=== PATIENT | female | born 1940 | race Caucasian/White ===

== ENCOUNTER 2017-02-05 13:26 | Observation (INO) | payer OTHER ==
[~2017-02-05] VITALS: Ht 157.5 cm; Wt 85.0 kg
[2017-02-05] VITALS (7 sets, daily range): BP systolic 162–204; BP diastolic 83–92; PULSE 77–96; RESP 18–20; TEMP 97.7–97.9; O2SAT 94–97
[~2017-02-05 13:26] MED LIST: LIPI20TA PO; SERT100 PO
[2017-02-05] MEDS ORDERED: ZOLO100T PO (14:29)
[2017-02-05] MEDS ORDERED: NAPR220T95 PO (14:32)
[2017-02-05] MEDS ORDERED: ASPI81CH7 CHEW (14:32)
[2017-02-05] MEDS ORDERED: SODIUM CHLORIDE 0.9% FLUSH 10 ML FLUSH IVF PRN (14:45)
--- NOTE | 2017-02-05 14:55 | RADRPT ---
EXAM DATE/TIME: 02/05/2017 14:46 [facility] COMPARISON: No previous studies available for comparison. INDICATIONS : Abnormal EKG with shortness of breath for 2 weeks. MEDICAL HISTORY : Chronic obstructive pulmonary disease. SURGICAL HISTORY : None. ENCOUNTER: Initial ACUITY: 2 weeks PAIN SCORE: 0/10 LOCATION: chest FINDINGS: A single view of the chest demonstrates the lungs to be symmetrically aerated without evidence of mas s, infiltrate or effusion. The cardiomediastinal contours are unremarkable. Osseous structures are intact. CONCLUSION: No acute disease. Sree Dockery MD FACR on February 05, 2017 at 14:54 Board Certified Radiologist. This report was verified electronically.
[2017-02-05 15:01] LABS: AUTOMATED NEUTROPHIL # 6.7 TH/MM3 (1.8-7.7); BASOPHIL # 0.1 TH/MM3 (0-0.2); BASOPHIL % 0.6 % (0.0-2.0); EOSINOPHIL # 0.2 TH/MM3 (0-0.4); EOSINOPHIL % 1.7 % (0.0-4.0); HEMATOCRIT 39.3 % (35.0-46.0); HEMO FLAGS DIFF FINAL; LYMPH % 22.9 % (9.0-44.0); LYMPHOCYTE # 2.2 TH/MM3 (1.0-4.8); MEAN CELL VOLUME 80.4 FL (80.0-100.0); MEAN CORPUSCULAR HGB CONC 34.8 % (32.0-36.0); MONO % 3.8 % (0.0-8.0); PLATELET COUNT 216 TH/MM3 (150-450); RED BLOOD COUNT 4.88 MIL/MM3 (4.00-5.30); RED CELL DISTRIBUTION WIDTH 14.1 % (11.6-17.2); WHITE BLOOD COUNT 9.4 TH/MM3 (4.0-11.0)
[2017-02-05 15:18] LABS: BLOOD UREA NITROGEN 14 MG/DL (7-18); CHLORIDE 107 MEQ/L (98-107); GLOMERULAR FILTRATION RATE 97 ML/MIN (>89); MAGNESIUM 2.2 MG/DL (1.5-2.5); SODIUM (NA) 140 MEQ/L (136-145)
[2017-02-05 15:19] LABS: ANION GAP 4 MEQ/L (5-15); BICARBONATE 28.7 MEQ/L (21.0-32.0); CREATINE KINASE 83 U/L (26-192); POTASSIUM 4.5 MEQ/L (3.5-5.1)
[2017-02-05 15:27] LABS: APTT (PATIENT) 25.1 SEC (24.3-30.1); INTERNATIONAL NORMALIZED RATIO 0.9 RATIO
--- NOTE | 2017-02-05 16:18 | PD ---
HPI Chief Complaint: Cardiac Complaint Time Seen by Provider: 14:03 Travel History International Travel<30 days: No Contact w/Intl Traveler<30days: No Traveled to known affect area: No History of Present Illness HPI 76-year-old female came to the emergency room sent from her doctor's office with history of shortness of breath upon exertion for past 2-3 weeks. She had gone to see her doctor is a regular visit and happened to mention about this complain. Upon asking she also said that she has occasional chest pain that is from the midsternal area radiating to her left breast. There is no relationship of the chest pain to the shortness of breath. She usually notices the chest pain at night. Her last episode of chest pain was this morning when she woke up. Currently she was chest pain-free. There was a 12-lead EKG done at the primary care's office that showed a left bundle branch block. This was identified as a new onset left bundle branch block she was sent to the emergency room. Vital signs are stable and she does not appear to be in any significant discomfort. Patient has a third mate and he sees the third mate almost every year she said. Her last stress test was last year she things. No history of syncopal episodes. She does get little diaphoretic along with the shortness of breath. PFSH Past Medical History Narrative Medical List of her past medical, surgical, social and family history was reviewed from the nursing note. Hx Anticoagulant Therapy: Yes (ASPRIN ) Depression: Yes High Cholesterol: Yes Menopausal: Yes Past Surgical History Cholecystectomy: Yes Social History Alcohol Use: Yes (occas. wine) Tobacco Use: No (quit 1980 smoked cigs 1 ppd for 20 yrs) Substance Use: No Allergies-Medications (Allergen,Severity, Reaction): Coded Allergies: No Known Allergies (Unverified , 02/05/17) Comments No known drug allergies. Reported Meds & Prescriptions Reported Meds & Active Scripts Active Reported Aleve (Naproxen Sodium) 220 Mg Tab 440 Mg PO BID PRN Aspirin Children's (Aspirin) 81 Mg Chew 81 Mg CHEW DAILY@1600 Zoloft (Sertraline HCl) 100 Mg Tab 150 Mg PO DAILY@1600 Narrative Medication List of her home medications reviewed from the nursing note. Review of Systems Except as stated in HPI: all other systems reviewed are Neg Physical Exam Narrative GENERAL: Awake, alert, no obvious distress, obese SKIN: Warm and dry. HEAD: Atraumatic. Normocephalic. EYES: Pupils equal and round. No scleral icterus. No injection or drainage. ENT: No nasal bleeding or discharge. Mucous membranes pink and moist. NECK: Trachea midline. No JVD. CARDIOVASCULAR: Regular rate and rhythm. No murmur appreciated. RESPIRATORY: No accessory muscle use. Clear to auscultation. Breath sounds equal bilaterally. GASTROINTESTINAL: Abdomen soft, non-tender, nondistended. Hepatic and splenic margins not palpable. MUSCULOSKELETAL: No obvious deformities. No clubbing. No cyanosis. No edema. NEUROLOGICAL: Awake and alert. No obvious cranial nerve deficits. Motor grossly within normal limits. Normal speech. PSYCHIATRIC: Appropriate mood and affect; insight and judgment normal. Data Data Last Documented VS Vital Signs Date Time Temp Pulse Resp B/P Pulse Ox O2 Delivery O2 Flow Rate FiO2 02/05/17 13:45 96 Room Air 02/05/17 13:28 97.9 96 18 204/92 Orders Electrocardiogram (02/05/17 14:31) Basic Metabolic Panel (Bmp) (02/05/17 14:31) Ckmb (Isoenzyme) Profile (02/05/17 14:31) Complete Blood Count With Diff (02/05/17 14:31) Magnesium (Mg) (02/05/17 14:31) Prothrombin Time / Inr (Pt) (02/05/17 14:31) Act Partial Throm Time (Ptt) (02/05/17 14:31) Troponin I (02/05/17 14:31) Chest, Single Ap (02/05/17 14:31) Ecg Monitoring (02/05/17 14:31) Bilateral Bp Monitoring (02/05/17 14:31) Iv Access Insert/Monitor (02/05/17 14:31) Oximetry (02/05/17 14:31) Oxygen Administration (02/05/17 14:31) Sodium Chloride 0.9% Flush (Ns Flush) (02/05/17 14:45) Admit Order (Ed Use Only) (02/05/17 16:13) Labs Laboratory Tests Test 02/05/17 14:45 White Blood Count 9.4 TH/MM3 Red Blood Count 4.88 MIL/MM3 Hemoglobin 13.7 GM/DL Hematocrit 39.3 % Mean Corpuscular Volume 80.4 FL Mean Corpuscular Hemoglobin 28.0 PG Mean Corpuscular Hemoglobin 34.8 % Concent Red Cell Distribution Width 14.1 % Platelet Count 216 TH/MM3 Mean Platelet Volume 7.8 FL Neutrophils (%) (Auto) 71.0 % Lymphocytes (%) (Auto) 22.9 % Monocytes (%) (Auto) 3.8 % Eosinophils (%) (Auto) 1.7 % Basophils (%) (Auto) 0.6 % Neutrophils # (Auto) 6.7 TH/MM3 Lymphocytes # (Auto) 2.2 TH/MM3 Monocytes # (Auto) 0.4 TH/MM3 Eosinophils # (Auto) 0.2 TH/MM3 Basophils # (Auto) 0.1 TH/MM3 CBC Comment DIFF FINAL Differential Comment Prothrombin Time 10.0 SEC Prothromb Time International 0.9 RATIO Ratio Activated Partial 25.1 SEC Thromboplast Time Sodium Level 140 MEQ/L Potassium Level 4.5 MEQ/L Chloride Level 107 MEQ/L Carbon Dioxide Level 28.7 MEQ/L Anion Gap 4 MEQ/L Blood Urea Nitrogen 14 MG/DL Creatinine 0.60 MG/DL Estimat Glomerular Filtration 97 ML/MIN Rate Random Glucose 93 MG/DL Calcium Level 9.2 MG/DL Magnesium Level 2.2 MG/DL Total Creatine Kinase 83 U/L Troponin I LESS THAN 0.02 NG/ML MDM Medical Decision Making Medical Screen Exam Complete: Yes Emergency Medical Condition: Yes Medical Record Reviewed: Yes Interpretation(s) Twelve-lead EKG was reviewed by me. Normal sinus rhythm, normal axis, left bundle branch block. Heart rate of 81 bpm. Differential Diagnosis ACS, congestive heart failure Narrative Course 4 PM I discussed the case with patient's third mate Dr. Mitchell. As per him the left bundle branch block is not new. He has EKGs of her which has left bundle branch block as well. However, given her symptoms he recommended the patient should be stressed at the chest pain center. I've gone ahead and admitted her to the chest pain center. All her blood test results were back and they were within normal limit. Chest x-ray was within acceptable limits. Procedures EKG Prior to Arrival: Yes Diagnosis Primary Impression: Chest pain Qualified Code: R07.9 - Chest pain, unspecified type Admitting Information Admitting Physician Requests: Bubba Brown MD Feb 05, 2017 16:18
[2017-02-05] MEDS ORDERED: SODIUM CHLORIDE 0.9% FLUSH 5 ML FLUSH IVF PRN (17:15)
--- NOTE | 2017-02-05 17:29 | HHI.HP ---
[facility] Primary Care Physician David Molina MD Chief Complaint Chest pain History of Present Illness This is a 76-year-old female that presents to the ED via private vehicle with family after presenting to her primary care office for a physical. An EKG was obtained which showed a left bundle branch block. This concerned her primary care physician who asked the patient about other symptoms. The patient stated that she had been having for the last week a left-sided chest discomfort that she describes as a tightness that for the most part always occurred at nighttime she lying down in bed. Is very mild in nature. She would not even thought about it if her primary care physician when out of and asking for symptoms after getting EKG. She also has chronic shortness of breath with COPD but states that it seems occur shortness of breath has been a little worse over the last 3-4 weeks. She states when she she occasionally gets a little sweaty when she has this discomfort at nighttime. No nausea. Denies recent illnesses. Denies fevers. She has followed Dr. Mitchell in the past. She states she was referred to him to evaluate shortness of breath a couple years ago. She had a chemical stress test and was told that it was okay he really has not had to follow him since. Dr. De Jesus spoke with Dr. Mitchell, left bundle branch block is not new. He requested that she admit the patient to the chest pain center for stress testing. Review of Systems General: Patient denies fevers, chills recent, and recent travel HEENT: Patient denies headache, sore throat, difficulty swallowing. Cardiovascular: Has the chest discomfort as mentioned above. Denies sensation of heart beating rapidly or irregularly. No syncope. Has had some diaphoresis. Respiratory: Patient has chronic shortness of breath. She believes it has worsened over the last 3-4 weeks. Denies inspirational chest discomfort. Denies coughing wheezing or hemoptysis. GI: Patient denies nausea, vomiting, diarrhea, abdominal pain, bloody stools. Musculoskeletal: Patient denies joint pain or edema. Denies calf pain or edema. Neurovascular: Patient denies numbness, tingling, weakness in extremities. Denies headache. Endocrine: Denies polyuria and polydipsia. Hematologic: Denies easy bruising. Skin: Denies rash or itching. Past Family Social History Allergies: Coded Allergies: No Known Allergies (Unverified , 02/05/17) Past Medical History Left bundle branch block, COPD, hyperlipidemia however she has not tolerated statins in his medication at this time. Denies history of hypertension although she was quite hypertensive upon arrival to the ED with a blood pressure of 204/92. Denies diabetes and known CAD. Past Surgical History Noncontributory. Reported Medications Reported Meds & Active Scripts Active Reported Aleve (Naproxen Sodium) 220 Mg Tab 440 Mg PO BID PRN Aspirin Children's (Aspirin) 81 Mg Chew 81 Mg CHEW DAILY@1600 Zoloft (Sertraline HCl) 100 Mg Tab 150 Mg PO DAILY@1600 Active Ordered Medications Current Medications Medications (Trade) Dose Ordered Sig/Viktor Route Start Time Stop Time Status Last Admin (NS Flush) 2 ml UNSCH PRN IVF 02/05/17 14:45 (NS Flush) 2 ml UNSCH PRN IVF 02/05/17 17:15 UNV (NS Flush) 2 ml BID IVF 02/05/17 21:00 UNV (Tylenol) 500 mg Q4H PRN PO 02/05/17 17:15 UNV ([place] 7.5-325 Mg) 1 tab Q4H PRN PO 02/05/17 18:00 (Zofran Inj) 4 mg Q6H PRN IV 02/05/17 17:15 UNV (Protonix) 40 mg DAILY PO 02/05/17 18:00 (Aspirin) 325 mg DAILY PO 02/06/17 09:00 UNV (Xanax) 0.25 mg Q8HR PRN PO 02/05/17 18:00 (Catapres) 0.1 mg Q4H PRN PO 02/05/17 18:00 (Prinivil) 10 mg DAILY PO 02/05/17 17:15 UNV Family History Not aware family history of CAD. Her father of "black lung disease. " But she also states that she had heard family talking about him having congestive heart failure as well. Social History Patient quit smoking cigarettes 30 years ago prior that she smoked one pack of cigarettes daily for 20 years. She lives alone. Physical Exam Vital Signs Vital Signs Date Time Temp Pulse Resp B/P Pulse Ox O2 Delivery O2 Flow Rate FiO2 02/05/17 13:28 97.9 96 18 204/92 97 Room Air Physical Exam GENERAL: This is a well-nourished, well-developed patient, in no apparent distress. Patient speaks in clear complete sentences. Patient is pleasant. Patient has multiple family and friends at the bedside. HEENT: Head is atraumatic and normocephalic. Neck is supple without lymphadenopathy and trachea is midline. No JVD or carotid bruits. CARDIOVASCULAR: Regular rate and rhythm without murmurs, gallops, or rubs. RESPIRATORY: Clear to auscultation. Breath sounds equal bilaterally. No wheezes , rales, or rhonchi. Chest wall is nontender. No use of accessory muscles. GASTROINTESTINAL: Abdomen is nontender, nondistended. Abdomen soft. No obvious pulsatile mass or bruit. No CVA tenderness. Strong femoral pulses bilaterally. Normal bowel sounds in all quadrants. MUSCULOSKELETAL: Patient is moving upper and lower extremities freely. No calf tenderness or edema, no Homans sign. Strong pulses in upper and lower extremities. NEUROLOGICAL: Patient is alert and oriented. Cranial nerves 2-12 are grossly intact. No focal deficits and speech is clear. SKIN: No rash and turgor is normal. Laboratory Laboratory Tests Test 02/05/17 14:45 White Blood Count 9.4 Red Blood Count 4.88 Hemoglobin 13.7 Hematocrit 39.3 Mean Corpuscular Volume 80.4 Mean Corpuscular Hemoglobin 28.0 Mean Corpuscular Hemoglobin 34.8 Concent Red Cell Distribution Width 14.1 Platelet Count 216 Mean Platelet Volume 7.8 Neutrophils (%) (Auto) 71.0 Lymphocytes (%) (Auto) 22.9 Monocytes (%) (Auto) 3.8 Eosinophils (%) (Auto) 1.7 Basophils (%) (Auto) 0.6 Neutrophils # (Auto) 6.7 Lymphocytes # (Auto) 2.2 Monocytes # (Auto) 0.4 Eosinophils # (Auto) 0.2 Basophils # (Auto) 0.1 CBC Comment DIFF FINAL Differential Comment Prothrombin Time 10.0 Prothromb Time International 0.9 Ratio Activated Partial 25.1 Thromboplast Time Sodium Level 140 Potassium Level 4.5 Chloride Level 107 Carbon Dioxide Level 28.7 Anion Gap 4 Blood Urea Nitrogen 14 Creatinine 0.60 Estimat Glomerular Filtration 97 Rate Random Glucose 93 Calcium Level 9.2 Magnesium Level 2.2 Total Creatine Kinase 83 Troponin I LESS THAN 0.02 Result Diagram: 02/05/17 1445 02/05/17 1445 Imaging Last 24 hours Impressions Chest X-Ray 02/05/17 1431 Signed Impressions: Service Date/Time: Sunday, February 05, 2017 14:46 - CONCLUSION: No acute disease. Sree Dockery MD FACR Course Initial EKG has a left bundle branch block. Assessment and Plan Assessment and Plan * Chest pain: Patient will continue to have serial cardiac enzymes and EKGs for ruling out purposes. She will also be seen by Dr. Godinez of cardiology in the chest pain center in the morning. The ER physician spoke with Dr. Mitchell who requested admission to the chest pain center and to proceed with stress testing. If she rules out she will likely have a Lexiscan a morning. She'll likely be discharged home if the stress test were to be nonischemic. If stress test is abnormal it certainly notify Dr. Mitchell as well. * Elevated blood pressure: Patient denies history of hypertension. I rechecked her blood pressure in the room and was 168/89. We'll start lisinopril and recheck in the morning. Possibly may need Rx. * COPD: Abdomen is when necessary. * Left bundle branch block: ED physician spoke with her room inspector and this is not new. * Hyperlipidemia: Patient states she does not tolerate statins and should discuss further treatment with her physician. Patient is stable at this time. She is agreeable to this plan. Josiah Palacios Feb 05, 2017 17:29
[2017-02-05] MEDS ORDERED: cloNIDine HCL 0.1 MG TAB PO PRN (18:00)
[2017-02-05] MEDS ORDERED: ONDANSETRON HCL 4 MG/2 ML VIAL IV PRN (18:00)
[2017-02-05] MEDS ORDERED: ACETAMINOPHEN/HYDROcodone 325 MG/7.5 MG TAB PO PRN (18:00)
[2017-02-05] MEDS ORDERED: ALPRAZolam 0.25 MG TAB PO PRN (18:00)
[2017-02-05] MEDS ORDERED: ACETAMINOPHEN 500 MG CPLT PO PRN (18:00)
[2017-02-05] MEDS ORDERED: LISINOPRIL 10 MG TAB PO SCH (18:00)
[2017-02-05] MEDS: PANTOPRAZOLE SOD 40 MG DELAYED RELEASE TAB PO SCH (18:39)
[2017-02-05] MEDS ORDERED: RESP: ALBUTEROL 2.5 MG/IPRATROPIUM 0.5 MG NEB (PRN) INH (20:00)
[2017-02-05 20:17] LABS: CREATINE KINASE 43 U/L (26-192)
[2017-02-05] MEDS: SODIUM CHLORIDE 0.9% FLUSH 5 ML FLUSH IVF SCH (21:00)
[2017-02-05 23:04] LABS: CREATINE KINASE 49 U/L (26-192)
[2017-02-06 04:20] VITALS: BP 165/67; PULSE 68; RESP 18; TEMP 97.8; O2SAT 95
[2017-02-06 08:40] VITALS: BP 138/83; PULSE 68; RESP 17; TEMP 97.6; O2SAT 93
[2017-02-06] MEDS ORDERED: PILL SPLITTER OTHER PRN (08:45)
[2017-02-06] MEDS ORDERED: ASPIRIN 325 MG TAB PO SCH (09:00)
[2017-02-06] MEDS ORDERED: LISINOPRIL 10 MG TAB PO SCH (09:00)
[2017-02-06] MEDS: SODIUM CHLORIDE 0.9% FLUSH 5 ML FLUSH IVF SCH (09:00)
[2017-02-06] MEDS: PANTOPRAZOLE SOD 40 MG DELAYED RELEASE TAB PO SCH (09:09)
[2017-02-06] MEDS ORDERED: REGADENOSON INJ 0.4 MG/5 ML SYR ONE (11:17)
--- NOTE | 2017-02-06 13:17 | RADRPT ---
EXAM DATE/TIME: 02/06/2017 10:24 [facility] COMPARISON: No previous studies available for comparison. INDICATIONS : Chronic dyspnea upon exertion. Chest pain radiating to the left breast for 2 months. Abnormal EKG. DOSE: 34.8 mCi Tc99m Myoview at stress. 11.0 mCi Tc99m Myoview at rest. 0.4 mg Lexiscan STRESS SYMPTOMS: Dyspnea, dizziness and nausea. EJECTION FRACTION: 43% MEDICAL HISTORY : Hypercholesterolemia. Ex-smoker. SURGICAL HISTORY : Cholecystectomy. ENCOUNTER: Initial ACUITY: 2 months PAIN SCALE: 4/10 LOCATION: Midsternal chest TECHNIQUE: The patient underwent pharmacologic stress with infusion of prescribed dose. Continuous ECG tracing was monitored during stress. Gated SPECT imaging was performed after stress and conventional SPECT i maging was performed at rest. The examination was performed on a SPECT/CT scanner, both attenuation and non-corrected datasets were reviewed. FINDINGS: DISTRIBUTION: The maximum perfused segment at stress is in the anterolateral. PERFUSION STUDY: The pattern of perfusion at stress shows fixed perfusion defect in the low anterior and inferior wall s extending into the apex. A there are small areas of 20-30% redistribution in the inferior wall poss ibly representing some elie-infarct ischemia. GATED STUDY: Diffuse hypokinesis with a diminished ejection fraction of 43%. CONCLUSION: 1. 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 2. Possible punctate area of elie-infarct ischemia in the inferior wall. 3. Diffuse hypokinesis with a reduced ejection fraction of 43% . RISK CATEGORY: Intermediate (1-3% Annual Mortality Rate) Erasmo Mancuso MD on February 06, 2017 at 13:01 Board Certified Radiologist. This report was verified electronically.
--- NOTE | 2017-02-06 14:37 | HHI.DCPOC ---
Discharge Care Plan Diagnosis: (1) Atypical chest pain (2) Decreased cardiac ejection fraction (3) COPD (chronic obstructive pulmonary disease) Goals to Promote Your Health * To prevent worsening of your condition and complications * To maintain your health at the optimal level Directions to Meet Your Goals Take your medications as prescribed Follow your dietary instruction Follow activity as directed Keep your appointments as scheduled Take your immunizations and boosters as scheduled If your symptoms worsen call your PCP, if no PCP go to Urgent Care Center or Emergency Room Smoking is Dangerous to Your Health. Avoid second hand smoke Call the 24-hour hour crisis hotline for domestic abuse at [place] Feb 06, 2017 14:37
[2017-02-06] MEDS ORDERED: SERTRALINE HCL 100 MG TAB PO SCH (16:00)
[2017-02-06 16:09] VITALS: BP 135/64; PULSE 79; RESP 19; TEMP 98.4; O2SAT 95
--- NOTE | 2017-02-06 17:33 | TR ---
Date Performed: 02/06/2017 Time Performed: 11:05:18 DOCTOR: Aishwarya Godinez DRUG LIST: CLINICAL HISTORY: REASON FOR TEST: Angina REASON FOR ENDING: OBSERVATION: CONCLUSION: Lexiscan stress test was performed under standard four minute protocol. Radionucl[place] e was injected one minute prior to ending the test. No electrocardiographic abormalities were present to suggest ischemia. Nuclear imaging and interpretation are pending. COMMENTS:
--- NOTE | 2017-02-06 21:37 | EKG ---
Date Performed: 02/05/2017 Time Performed: 22:44:17 PTAGE: 76 years EKG: Sinus rhythm LEFT BUNDLE BRANCH BLOCK ABNORMAL ECG Since PREVIOUS TRACING , no significant change noted PREVIOUS TRACIN02/05/2017 19.04 DOCTOR: Aishwarya Godinez Interpretating Date/Time 02/06/2017 21:36:56
--- NOTE | 2017-02-06 21:38 | EKG ---
Date Performed: 02/05/2017 Time Performed: 19:04:41 PTAGE: 76 years EKG: Sinus rhythm WITH OCCASIONAL VENTRICULAR PREMATURE COMPLEXES LEFT BUNDLE BRANCH BLOCK ABNORMAL ECG Since PREVIOUS TRACING , no significant change noted PREVIOUS TRACIN02/05/2017 14.08 DOCTOR: Aishwarya Godinez Interpretating Date/Time 02/06/2017 21:37:55
--- NOTE | 2017-02-07 14:34 | EKG ---
Date Performed: 02/05/2017 Time Performed: 14:08:11 PTAGE: 76 years EKG: Sinus rhythm LEFT BUNDLE BRANCH BLOCK ABNORMAL ECG NO PREVIOUS TRACING DOCTOR: Aishwarya Godinez Interpretating Date/Time 02/07/2017 14:32:07
== END 2017-02-06 16:51 | disposition home or self-care (01) ==
LOC: NEPC 13:26 → NEDA 16:15 → NEPGCP 19:13
PROVIDERS: ADMIT Internal Medicine Cardiovascular Disease; ATTEND Internal Medicine Cardiovascular Disease
DX: R07.9 Chest pain, unspecified (principal); R06.02 Shortness of breath; I44.7 Left bundle-branch block, unspecified; R61 Generalized hyperhidrosis; Z79.82 Long term (current) use of aspirin; E78.00 Pure hypercholesterolemia, unspecified; Z87.891 Personal history of nicotine dependence; Z79.899 Other long term (current) drug therapy; J44.9 Chronic obstructive pulmonary disease, unspecified; R03.0 Elevated blood-pressure reading, without diagnosis of hypertension; E78.5 Hyperlipidemia, unspecified; R94.31 Abnormal electrocardiogram [ECG] [EKG]
CPT/HCPCS: 71010; 78452; 80048; 82550; 83735; 84484; 85025; 85610; 85730; 93005; 93017; 99285; A9502; G0378; J2785

== ENCOUNTER → 2017-07-03 | Outpatient (CLI) | payer OTHER ==
[~2017-07-03] MED LIST changes: +ALEV220T14 PO; +ASPI81CH37 CHEW; +ASPI81CH7 CHEW; +COMMODE 3-IN-11 MIS; +ENOX40P SQ; +HYDR-3288 PO; -LIPI20TA PO; +NAPR220T95 PO; -SERT100 PO; +WALKER WHEELS/F1 MIS; +ZOLO100T PO
--- NOTE | 2017-07-15 09:52 | RSPPFT ---
DATE OF PROCEDURE: 07/03/17 COMMENTS: VOLUMES DYNAMIC: FVC and FEV1 mildly reduced. STATIC: RV, FRC and TLC mildly reduced. FLOWS: FEV1% mildly reduced; FEF 25-75 severely reduced. DIFFUSION; Moderately reduced. FLOW VOLUME LOOP: Combined obstructive and restrictive pattern. IMPRESSION: Combined mild obstructive and mild restrictive ventilator defect with a moderate reduction in diffusion and no significant improvement post-bronchodilator.
== END ==
LOC: PHRSP 08:21
PROVIDERS: ATTEND Internal Medicine
DX: J44.9 Chronic obstructive pulmonary disease, unspecified (principal)
CPT/HCPCS: 94060; 94620; 94726; 94729

== ENCOUNTER 2017-07-21 10:00 | Inpatient (IN) | payer OTHER, MEDICARE ==
[~2017-07-21] VITALS: Ht 157.5 cm; Wt 83.7 kg
[~2017-07-21 10:00] MED LIST changes: -ALEV220T14 PO; -ASPI81CH37 CHEW; -COMMODE 3-IN-11 MIS; -ENOX40P SQ; -HYDR-3288 PO; -NAPR220T95 PO; -WALKER WHEELS/F1 MIS
[2017-07-31] MEDS ORDERED: ALEV220T14 PO (14:10)
[2017-08-01] MEDS ORDERED: SODIUM CHLOR 0.9% 250 ML INJ 250 ML ONE (06:11)
[2017-08-01] MEDS ORDERED: VANCOMYCIN HCL 1000 MG VIAL ONE (06:11)
[2017-08-01] MEDS ORDERED: GENTAMICIN SULFATE 80 MG/2 ML VIAL ONE (06:11)
[2017-08-01] MEDS ORDERED: ceFAZolin 2 GM PREMIX 50 ML ONE (06:12)
[2017-08-01] MEDS ORDERED: DEXAMETHASONE SOD PHOS 20 MG/5 ML VIAL ONE (06:12)
[2017-08-01] MEDS ORDERED: VANCOMYCIN 1000 MG/NS 250 ML (for <70 kg) IV SCH ×2 (06:15)
[2017-08-01] MEDS ORDERED: ceFAZolin 2 GM PREMIX 50 ML IV SCH (06:15)
[2017-08-01] MEDS ORDERED: POVIDONE IODINE 7.5% SCRUB 118 ML BOTTLE TOPICAL SCH (06:15)
[2017-08-01] MEDS ORDERED: CHLORHEXIDINE GLUCONATE 4% SOLN 120 ML BTL TOPICAL SCH (06:15)
[2017-08-01] MEDS ORDERED: DEXAMETHASONE SOD PHOS 20 MG/5 ML VIAL IV SCH (06:15)
[2017-08-01] MEDS ORDERED: ACETAMINOPHEN 1000 MG/100 ML 100 ML IV ONE (06:17)
[2017-08-01] MEDS ORDERED: CHLORHEXIDINE GLUCONATE 2 % 1 PACK (2 CLOTHS) TOPICAL PRN (06:30)
[2017-08-01] MEDS ORDERED: POVIDONE IODINE 5% (ANTISEPSIS KIT) 4 APPLICATIONS EACH NARE PRN (06:30)
[2017-08-01] MEDS ORDERED: LACTATED RINGER'S 1000 ML IV PRN (06:30)
[2017-08-01] MEDS ORDERED: SODIUM CHLORID 0.9% 500 ML IV PRN (06:30)
[2017-08-01] MEDS ORDERED: INSULIN HUMAN REGULAR 1,000 UNITS/10 ML VIAL SQ PRN (06:30)
[2017-08-01] MEDS ORDERED: METOPROLOL TARTRATE 25 MG TAB PO PRN (06:30)
[2017-08-01] MEDS ORDERED: TRANEXAMIC PERI-ARTICULAR 3,000 MG/NS 100 ML P-ARTICULR SCH ×2 (07:00)
[2017-08-01] MEDS ORDERED: TRANEXAMIC ACID IV SCH (07:00)
[2017-08-01] MEDS ORDERED: EXPAREL PERI-ARTICULAR INJECTION (TOTAL VOL. 60 ML) P-ARTICULR SCH ×2 (07:00)
[2017-08-01] MEDS ORDERED: SODIUM CHLORIDE 0.9% IV SCH (07:00)
[2017-08-01] MEDS ORDERED: HYDR-3288 PO (07:10)
[2017-08-01] MEDS ORDERED: ENOX40P SQ (07:11)
[2017-08-01] MEDS ORDERED: ASPI81CH37 CHEW (07:11)
--- NOTE | 2017-08-01 07:13 | HHI.DCPOC ---
Discharge Care Plan Diagnosis: (1) Primary localized osteoarthrosis, pelvic region and thigh Your Health Problems Are: Difficulty with ADL Goals to Promote Your Health * To prevent worsening of your condition and complications * To maintain your health at the optimal level Directions to Meet Your Goals Take your medications as prescribed Follow your dietary instruction Follow activity as directed Keep your appointments as scheduled Take your immunizations and boosters as scheduled If your symptoms worsen call your PCP, if no PCP go to Urgent Care Center or Emergency Room Smoking is Dangerous to Your Health. Avoid second hand smoke Call the 24-hour hour crisis hotline for domestic abuse at Chetan Verduzco Aug 01, 2017 07:13
--- NOTE | 2017-08-01 07:14 | HHI.FF ---
Face to Face Verification Diagnosis: (1) Primary localized osteoarthrosis, pelvic region and thigh Physical Therapy Gait training, Safety evaluation, Transfer training, bed to chair Hip: Total hip, Protocol: Left, Progress to weight bearing Left LE Weight Bearing: WB as tolerated Nursing RN: 3 days/week x 2 weeks Nursing: Josee teaching, Dressing changes Dressing Changes: Daily dressing change I have seen patient Crista Ferguson on 08/01/17. My clinical findings support the need for the requested home health care services because: Limited ability to care for self High risk of falls I certify that my clinical findings support that this patient is homebound because: Post-op weakness Unsteady gait/balance Chetan Verduzco Aug 01, 2017 07:14
[2017-08-01] MEDS ORDERED: BISACODYL 10 MG SUPP RECTAL PRN (07:15)
[2017-08-01] MEDS ORDERED: ACETAMINOPHEN/HYDROcodone 325 MG/7.5 MG TAB PO PRN (07:15)
[2017-08-01] MEDS ORDERED: SODIUM CHLORIDE 0.9% FLUSH 10 ML FLUSH IV FLUSH PRN (07:15)
[2017-08-01] MEDS ORDERED: MORPHINE SULFATE 4 MG/ML INJ IV PUSH PRN (07:15)
[2017-08-01] MEDS ORDERED: WALKER WHEELS/F1 MIS (07:15)
[2017-08-01] MEDS ORDERED: ZOLPIDEM TARTRATE 5 MG TAB PO PRN (07:15)
[2017-08-01] MEDS ORDERED: diphenhydrAMINE HCL 50 MG/ML VIAL IV PRN (07:15)
[2017-08-01] MEDS ORDERED: COMMODE 3-IN-11 MIS (07:15)
[2017-08-01] MEDS ORDERED: ONDANSETRON HCL 4 MG/2 ML VIAL IVP PRN (07:15)
[2017-08-01] MEDS ORDERED: PILL SPLITTER OTHER PRN (07:15)
[2017-08-01] MEDS ORDERED: RESP: ALBUTEROL 2.5 MG/3 ML NEB (PRN) NEB (08:30)
[2017-08-01] MEDS ORDERED: DO NOT ADM ANY ANTICOAGULANT DRUGS PRN (08:47)
[2017-08-01] MEDS ORDERED: Post-op Orders (for Pharmacy) MISC XX ONE (08:47)
[2017-08-01] MEDS: SODIUM CHLOR 0.9% 1000 ML INJ 1,000 ML IV SCH ×2 (09:20→20:00)
--- NOTE | 2017-08-01 09:27 | MP ---
cc: TAM WASSERMAN M.D. DATE OF SURGERY: 08/01/2017 PREOPERATIVE DIAGNOSIS Left hip osteoarthritis POSTOPERATIVE DIAGNOSES Left hip osteoarthritis. PROCEDURE Left total hip arthroplasty. SURGEON Dr. Tam Wasserman. BLACK OFF WORKER: VIK Smith ANESTHESIA General. ESTIMATED BLOOD LOSS: 100 cc. COMPLICATIONS: None. IMPLANTS USED: DePuy Corail size 10 standard offset Press-Fit femoral stem size 48 solid pinnacle Frandy cup size 32 mm highly cross-linked polyethylene liner, +4 posterior high wall. +5 neck. JUSTIFICATION: This patient is a 76-year-old female with history of severe end-stage osteoarthritis involving the left hip. She has severe disabling pain standing, walking ambulation with weightbearing activities, even severe pain at rest. It does interfere with activities of daily living. She has failed greater than 3 months of nonoperative conservative and include medication therapy and assisted aids, activity modification, weight loss attempts. X-RAYS Left hip reveal severe end-stage osteoarthritis, [id number] joint space narrowing, subchondral sclerosis, subchondral cyst osteophyte formation with superior subluxation. The patient counseled as to the risks, benefits and alternatives to a total hip arthroplasty. The risks of which include but limited to bleeding, infection damage to nerves, blood vessels, pain, stiffness, leg length discrepancies, dislocation, blood clot, pulmonary embolism and even . The patient's pain is severe. She favored benefits over the risks and she did wish to proceed with surgery. A written consent was obtained. The patient identified by name, taken to the supine on the general anesthesia was administered as 2 grams of IV Ancef and 1 gram of IV vancomycin. The patient carefully turned to a right lateral decubitus position, lateral arm was placed, all bony prominences and pressure were well padded. The left hip and left lower tree prepped and draped using as alcohol, Hibiclens solution Chloraprep solution after time-out was performed a large incision made over posterolateral aspect left hip. The fascial layer was incised. The piriformis capsule was incised tagged with #2 FiberWire suture. The hip was dislocated oscillating saw was used for a femoral neck cut. The osteoarthritic femoral head neck component was removed until a scalpel was used to excise the labrum. Sequential reaming began at size 43 was carried to size 48. Subsequently a solid pinnacle Frandy cup was implanted approximately 45 degrees of abduction 10 degrees of anteversion. The 48-mm solid cup fit very well, tendon was turned to the. The very well. A screw hole eliminator placed followed by the +4 posterior high wall offset highly cross-linked polyethylene liner was impacted in place and tested for stability. Attention was turned femur where a box cutting osteotome. The Osteotome was used to gain entrance into the intramedullary canal femur, it was followed by canal finder, lateralizing reamer. Sequential broaching was performed at the size 10, a calcar planer was used to plane the calcar. Trial head neck combinations were evaluated and was implanted with current components, leg achieved full extension and external rotation without evidence of anterior instability or impingement. The hip could be flexed 90 degrees and internally rotated 70 degrees for evidence of posterior instability soft tissue tension felt appropriate leg lengths felt relatively symmetric surgical wounds thoroughly irrigated with sterile saline antibiotic impregnated solution. The piriformis capsule was repaired #2 FiberWire suture. Fascial layer was closed on Vicryl suture. The site 2-0 Vicryl suture. Skin was closed Dermabond. Sterile dressing applied. The patient tolerated the procedure well with no intraoperative complications noted. Inderjit Verduzco physician assistant elementary teacher was present during the entire procedure to include patient positioning procedure. The medical necessity of physician assistant elementary teacher was indicated due to the complexity of the procedure he assisted with the manipulation of the leg and also traction muscle, tendon, bone, and neurovascular structures. He assisted with preparation of bone and also implantation of the prosthetic replacement. MD SHAYNA Meehan/natalee /8:31 AM /9:14 AM
[2017-08-01] MEDS: SODIUM CHLORIDE 0.9% FLUSH 10 ML FLUSH IV FLUSH SCH ×2 (10:00→20:13)
[2017-08-01] MEDS ORDERED: *morphine SULFATE 8 MG/ML PERIprocedure ONLY ONE (10:12)
--- NOTE | 2017-08-01 10:24 | RADRPT ---
EXAM DATE/TIME: 08/01/2017 09:43 [place] COMPARISON: No previous studies available for comparison. INDICATIONS : Post op left hip surgery. MEDICAL HISTORY : None. SURGICAL HISTORY : None. ENCOUNTER: Initial ACUITY: 1 day PAIN SCORE: 0/10 LOCATION: Left hip and pelvis FINDINGS: placement of a left total hip prosthesis appears well seated with the remainder the pe lvis is visualized intact. CONCLUSION: Left total hip prosthesis well seated Percy Alves MD on August 01, 2017 at 10:22 Board Certified Radiologist. This report was verified electronically.
[2017-08-01 10:40] VITALS: BP 144/69; PULSE 87; RESP 18; TEMP 96.1; O2SAT 98
--- NOTE | 2017-08-01 11:16 | PD.ORT.PN ---
Subjective Post Op Day #: 0 Objective Vitals Vital Signs Date Time Temp Pulse Resp B/P (MAP) Pulse Ox O2 Delivery O2 Flow Rate FiO2 08/01/17 10:00 97.6 86 17 170/76 (107) 96 Nasal Cannula 2 08/01/17 09:45 84 16 146/62 (90) 96 Nasal Cannula 2 08/01/17 09:41 14 89 08/01/17 09:30 76 16 166/72 (103) 96 Room Air 08/01/17 09:15 78 16 167/73 (104) 96 Room Air 08/01/17 09:00 77 16 156/67 (96) 98 Room Air 08/01/17 08:53 97.5 79 16 141/65 (90) 100 Simple Mask 8 08/01/17 06:43 98.1 88 20 186/81 (116) 95 I/O 07/31/17 07/31/17 07/31/17 08/01/17 08/01/17 08/01/17 07:00 15:00 23:00 07:00 15:00 23:00 Intake Total 50 ml 2100 ml Output Total 3700 ml Balance 50 ml -1600 ml Intake IV Total 50 ml 2100 ml Output Urine Total 350 ml Estimated Blood Loss 350 ml Other 3000 ml Imaging Last 24 hours Impressions Hip and Pelvis X-Ray 08/01/17 0708 Signed Impressions: Service Date/Time: Tuesday, August 01, 2017 09:43 - CONCLUSION: Left total hip prosthesis well seated Percy Alves MD Assessment & Plan Ortho Post Op Day #: 0 Problem List: Assessment and Plan s/p L CLAUS - posterior approach wbat - posterior hip precautions daily dressing changes lovenox d/c planning home vs snf rx in chart 3006 signed f/up dr. campa 2 weeks Chetan Verduzco Aug 01, 2017 11:16
[2017-08-01 12:00] VITALS: BP 148/72; PULSE 79; RESP 18; TEMP 96.3; O2SAT 97
[2017-08-01] MEDS ORDERED: LACTATED RINGER'S 1000 ML INJ 1,000 ML IV ONE (12:00)
[2017-08-01] MEDS ORDERED: ePHEDrine/NS 25 MG/5 ML SYR IV ONE (12:00)
[2017-08-01] MEDS ORDERED: PROPOFOL 200 MG/20 ML AMP IV ONE (12:00)
[2017-08-01] MEDS ORDERED: ONDANSETRON HCL 4 MG/2 ML VIAL IV PUSH ONE (12:00)
[2017-08-01] MEDS ORDERED: MIDAZOLAM HCL 2 MG/2 ML VIAL IV ONE (12:00)
[2017-08-01] MEDS ORDERED: PHENYLEPH/NS 1000 MCG/10 ML SYR IV ONE (12:00)
[2017-08-01] MEDS: ACETAMINOPHEN/HYDROcodone 325 MG/7.5 MG TAB PO PRN ×2 (13:02→22:31)
[2017-08-01 15:10] VITALS: O2SAT 95
[2017-08-01 16:00] VITALS: BP 102/62; PULSE 81; RESP 18; TEMP 95.6; O2SAT 97
--- NOTE | 2017-08-01 16:02 | PD.CONS ---
HPI Service [facility] Consult Requested By Chetan Rodarte M.D. Reason for Consult Medical management Primary Care Physician David Molina MD Diagnoses: History of Present Illness Written by Pablo Silva PA-C acting as scribe for Dr. Abdoul Rodriguez on 08/01/17 at 15:50. Ms. Ferguson underwent left total hip arthroplasty secondary to osteoarthritis on 08/01/[address] Chetan Rodarte. Estimated blood loss was 100 mL's. The hospitalist team was consulted by Dr. Rodarte for medical management. At time of interview, Ms. Ferguson was resting comfortably in her room. She denied pain from her surgery. Additionally she denied shortness of breath, nausea, vomiting, diarrhea, chest/abdominal pain. Mckenzie catheter was present. A 10 point review of systems was completed and, except as noted above was negative. Confirms history of left bundle branch block and underwent nonischemic nuclear study in January 2017. She was cleared for surgery by her practice support specialist. Depression controlled by Zoloft, COPD stable on as needed albuterol, and hyperlipidemia intolerant to statins. Review of Systems Constitutional: DENIES: Fever, Dizziness Eyes: DENIES: Blurred vision, Vision loss Ears, nose, mouth, throat: DENIES: Hearing loss, Ear Pain Respiratory: COMPLAINS OF: Cough, DENIES: Sputum production, Shortness of breath Cardiovascular: DENIES: Chest pain, Palpitations Gastrointestinal: DENIES: Abdominal pain, Constipation, Diarrhea, Nausea, Vomiting Musculoskeletal: COMPLAINS OF: Joint pain (pre-surgery) Hematologic/lymphatic: DENIES: Lymphadenopathy Neurologic: DENIES: Headache, Localized weakness, Speech Problems Psychiatric: COMPLAINS OF: Depression (well controlled with Zoloft), DENIES: Anxiety Past Family Social History Allergies: Coded Allergies: No Known Allergies (Unverified , 08/01/17) Past Medical History left bundle branch block, depression COPD hyperlipidemia. Past Surgical History Cholecystectomy Reported Medications Reported Meds & Active Scripts Active Aspirin Low Dose (Aspirin) 81 Mg Chew 81 Mg CHEW BID 30 Days Lovenox Inj (Enoxaparin Sodium) 40 Mg/0.4 Ml Syr 40 Mg SQ DAILY [place] (Hydrocodone-Acetaminophen) 7.5-325 mg Tab 1-2 Tab PO Q6H PRN Reported Aleve Arthritis (Naproxen Sodium) 220 Mg Tab 440 Mg PO BID PRN Aspirin Children's (Aspirin) 81 Mg Chew 81 Mg CHEW DAILY@1600 Zoloft (Sertraline HCl) 100 Mg Tab 150 Mg PO DAILY@1600 Active Ordered Medications Current Medications Medications (Trade) Dose Ordered Sig/Viktor Route Start Time Stop Time Status Last Admin (Betadine 7.5% Scrub) 1 applic ONCE TOPICAL 08/01/17 06:15 08/04/17 06:14 08/01/17 06:25 (Hibiclens 4% Top Soln) 1 applic ONCE TOPICAL 08/01/17 06:15 08/04/17 06:14 Vancomycin HCl 1000 mg/Sodium Chloride 250 ml @ 250 mls/hr PAWN BROKER IV 08/01/17 06:15 08/02/17 06:14 08/01/17 06:47 (Decadron Inj) 10 mg PAWN BROKER IV 08/01/17 06:15 08/02/17 06:14 08/01/17 06:35 Lactated Ringer's 1,000 ml @ 30 mls/hr Q24H PRN IV 08/01/17 06:30 08/04/17 06:29 08/01/17 06:35 Sodium Chloride 500 ml @ 30 mls/hr [id number] PRN IV 08/01/17 06:30 08/04/17 06:29 (Lopressor) 25 mg PAWN BROKER PRN PO 08/01/17 06:30 08/04/17 06:29 (Betadine 5% Antisepsis Kit) 1 applic PAWN BROKER PRN EACH NARE 08/01/17 06:30 08/04/17 06:29 08/01/17 06:40 (Chlorhexidine 2% Cloth) 3 pack PAWN BROKER PRN TOPICAL 08/01/17 06:30 08/04/17 06:29 08/01/17 05:45 (NovoLIN R INJ) See Protocol Table ... PAWN BROKER PRN SQ 08/01/17 06:30 08/04/17 06:29 (Zoloft) 150 mg DAILY@1600 PO 08/01/17 16:00 Sodium Chloride 1,000 ml @ 100 mls/hr Q10H IV 08/01/17 10:00 08/01/17 09:20 (NS Flush) 2 ml UNSCH PRN IV FLUSH 08/01/17 07:15 (NS Flush) 2 ml BID IV FLUSH 08/01/17 10:00 08/01/17 10:00 Cefazolin Sodium 1000 mg/Sodium Chloride 100 ml @ 200 mls/hr Q6H IV 08/01/17 12:00 08/02/17 00:29 08/01/17 12:28 (Lovenox Inj) 40 mg Q24H SQ 08/02/17 08:00 08/11/17 08:01 (Morphine Inj) 3 mg Q3H PRN IV PUSH 08/01/17 07:15 ([place] 7.5-325 Mg) 1 tab Q4H PRN PO 08/01/17 07:15 ([place] 7.5-325 Mg) 2 tab Q4H PRN PO 08/01/17 07:15 08/01/17 13:02 (Theragran M Tab) 1 tab BID PO 08/02/17 21:00 10/01/17 20:59 (Zofran Inj) 4 mg Q6H PRN IVP 08/01/17 07:15 (Colace) 100 mg BID PO 08/02/17 21:00 (Ambien) 5 mg HS PRN PO 08/01/17 07:15 (Dulcolax Supp) 10 mg DAILY PRN RECTAL 08/01/17 07:15 (Benadryl Inj) 25 mg Q6H PRN IV 08/01/17 07:15 (Pill Splitter) 1 ea UNSCH PRN OTHER 08/01/17 07:15 (Albuterol Neb) 2.5 mg Q2HR NEB PRN NEB 08/01/17 08:30 Miscellaneous Information ALL NURSING DEPARTME... UNSCH PRN .XX 08/01/17 08:47 08/02/17 08:46 (Flu (Quadrivalent) Vaccine Inj) 0.5 ml ONCE ONCE IM 08/02/17 10:00 08/02/17 10:01 Family History Negative for heart disease. Social History Occasional alcohol was endorsed. Patient reportedly smoked 1 pack a day for 20 years; stopped smoking 1979. Illicit/recreational drug use was denied. Physical Exam Vital Signs Vital Signs Date Time Temp Pulse Resp B/P (MAP) Pulse Ox O2 Delivery O2 Flow Rate FiO2 08/01/17 14:19 16 08/01/17 12:00 96.3 79 18 148/72 (97) 97 08/01/17 10:40 96.1 87 18 144/69 (94) 98 08/01/17 10:00 97.6 86 17 170/76 (107) 96 Nasal Cannula 2 08/01/17 09:45 84 16 146/62 (90) 96 Nasal Cannula 2 08/01/17 09:41 14 89 08/01/17 09:30 76 16 166/72 (103) 96 Room Air 08/01/17 09:15 78 16 167/73 (104) 96 Room Air 08/01/17 09:00 77 16 156/67 (96) 98 Room Air 08/01/17 08:53 97.5 79 16 141/65 (90) 100 Simple Mask 8 08/01/17 06:43 98.1 88 20 186/81 (116) 95 Physical Exam GENERAL: This is an obese, well-developed patient, in no apparent distress. Encountered laying a bed, sleeping, easily awakened. Friend and Daughter present at bedside. SKIN: No rashes, ecchymoses or lesions. Cool and dry. HEAD: Atraumatic. Normocephalic. EYES: Pupils equal round and reactive. Extraocular motions intact. No scleral icterus. No injection or drainage. ENT: Nose without bleeding or purulent drainage. Airway patent. NECK: Trachea midline. No lymphadenopathy. Supple and nontender. CARDIOVASCULAR: Regular rate and rhythm without murmurs, gallops, or rubs. S1 and S2 present RESPIRATORY: Clear to auscultation. Breath sounds equal, yet diminished, bilaterally. No wheezes, rales, or rhonchi. GASTROINTESTINAL: Abdomen soft, non-tender, nondistended. MUSCULOSKELETAL: Extremities without clubbing, cyanosis, or edema. No joint tenderness, effusion, or edema noted. CKS on left leg. NEUROLOGICAL: Awake and alert. Cranial nerves II through XII intact. Motor and sensory grossly within normal limits. Five out of 5 muscle strength in all muscle groups except left lower extremity which was not evaluated due to recent surgery. Speech was clear and fluent. Imaging Last Impressions Hip and Pelvis X-Ray 08/01/17 0708 Signed Impressions: Service Date/Time: Tuesday, August 01, 2017 09:43 - CONCLUSION: Left total hip prosthesis well seated Percy Alves MD Assessment and Plan Assessment and Plan Ms. Ferguson is 76-year-old, with history of left bundle branch block, depression, COPD, and hyperlipidemia. Ms. Ferguson underwent left total hip arthroplasty secondary to osteoarthritis on 08/01/[address] Chetan Rodarte. Estimated blood loss was 100 mL's. The hospitalist team was consulted by Dr. Rodarte for medical management. Status post left total hip arthroplasty -Rehabilitation per orthopedics. -PT/OT services -Pain management with IV morphine as well as oral narcotics. -CBC ordered for 08/02/17; monitor for postoperative anemia. Depression -Zoloft 150 mg by mouth daily at 1600 Hypertension -Elevated since surgery -Monitor -Will consider antihypertensives and pain is under control and elevation continues. COPD -Albuterol every 2 hours when necessary for shortness of breath. Left bundle branch block -Nonischemic nuclear stress test in January 2017, patient was cleared for surgery. Hyperlipidemia -Patient is intolerant to statins and is currently not prescribed such agents. DVT prophylaxis -Lovenox 40 mg subcutaneous every 24 starting on 08/02/17 This note was transcribed by nena Silva PA-C. I, Dr. Zachariah Rodriguez personally performed the history, physical exam, and medical decision making; and confirmed the accuracy of the information in the transcribed note. Authenticated by Dr. Zachariah Rodriguez on 08/01/17 at 16:04. Discussed Condition With Pt, family and friend (at bedside) Pablo Silva Jr. Aug 01, 2017 16:02 Zachariah Rodriguez MD Aug 01, 2017 16:04
[2017-08-01] MEDS: SERTRALINE HCL 100 MG TAB PO SCH (16:11)
[2017-08-01 20:00] VITALS: BP 143/82; PULSE 87; RESP 16; TEMP 97.5; O2SAT 93
[2017-08-02] VITALS: BP 142/55; PULSE 80; RESP 19; TEMP 97.8; O2SAT 94
[2017-08-02 04:00] VITALS: BP 127/62; PULSE 86; RESP 18; TEMP 97.4; O2SAT 96
[2017-08-02 05:01] LABS: HEMATOCRIT 33.8 % (35.0-46.0); MEAN CELL VOLUME 83.4 FL (80.0-100.0); MEAN CORPUSCULAR HEMOGLOBIN 27.8 PG (27.0-34.0); MEAN CORPUSCULAR HGB CONC 33.4 % (32.0-36.0); PLATELET COUNT 179 TH/MM3 (150-450); RED BLOOD COUNT 4.05 MIL/MM3 (4.00-5.30); REVIEW FLAG FINAL; WHITE BLOOD COUNT 10.3 TH/MM3 (4.0-11.0)
[2017-08-02] MEDS: SODIUM CHLOR 0.9% 1000 ML INJ 1,000 ML IV SCH ×2 (06:00→16:00)
[2017-08-02 08:00] VITALS: BP 160/76; PULSE 81; RESP 18; TEMP 98; O2SAT 95
[2017-08-02] MEDS ORDERED: ENOXAPARIN SODIUM 40 MG/0.4 ML SYRINGE SQ SCH (08:00)
[2017-08-02] MEDS: SODIUM CHLORIDE 0.9% FLUSH 10 ML FLUSH IV FLUSH SCH (09:02)
[2017-08-02] MEDS ORDERED: INFLUENZA VIRUS VACCINE (QUADRIVALENT) 0.5 ML SYR IM ONE (10:00)
[2017-08-02 10:15] VITALS: O2SAT 98
[2017-08-02] MEDS: ACETAMINOPHEN/HYDROcodone 325 MG/7.5 MG TAB PO PRN ×2 (12:54→17:51)
--- NOTE | 2017-08-02 14:24 | HHI.PR ---
Subjective Remarks Follow-up hip surgery. States she is doing okay out of bed with physical therapy. She wants to go home. Denies dizziness, chest pain and shortness of breath. Seen with her family Objective Vitals Vital Signs Date Time Temp Pulse Resp B/P (MAP) Pulse Ox O2 Delivery O2 Flow Rate FiO2 08/02/17 10:15 98 08/02/17 08:00 98.0 81 18 160/76 (104) 95 08/02/17 04:00 97.4 86 18 127/62 (83) 96 08/02/17 00:00 97.8 80 19 142/55 (84) 94 08/01/17 22:37 21 08/01/17 20:00 97.5 87 16 143/82 (102) 93 08/01/17 19:02 Room Air 08/01/17 16:00 95.6 81 18 102/62 (75) 97 08/01/17 15:10 95 21 I/O 08/01/17 08/01/17 08/01/17 08/02/17 08/02/17 08/02/17 07:00 15:00 23:00 07:00 15:00 23:00 Intake Total 50 ml 2580 ml 720 ml 492 ml Output Total 3700 ml Balance 50 ml -1120 ml 720 ml 492 ml Intake Oral 480 ml 720 ml 240 ml IV Total 50 ml 2100 ml 252 ml Output Urine Total 350 ml Estimated Blood Loss 350 ml Other 3000 ml # Voids 1 2 Result Diagram: 08/02/17 0312 Imaging Last Impressions Hip and Pelvis X-Ray 08/01/17 0708 Signed Impressions: Service Date/Time: Tuesday, August 01, 2017 09:43 - CONCLUSION: Left total hip prosthesis well seated Percy Alves MD Objective Remarks Well-developed, obese in no distress Pupils equally reactive to light and jaundice Neck no JVD and no bruit Equal in expansion clear to auscultation Heart regular rate and rhythm Abdomen soft nontender Extremities no edema Alert and oriented nonfocal A/P Assessment and Plan Ms. Ferguson is 76-year-old, with history of left bundle branch block, depression, COPD, and hyperlipidemia. Ms. Ferguson underwent left total hip arthroplasty secondary to osteoarthritis on 08/01/[address] Chetan Rodarte. Estimated blood loss was 100 mL's. The hospitalist team was consulted by Dr. Rodarte for medical management. Status post left total hip arthroplasty. Stable -Rehabilitation per orthopedics. -PT/OT services -Pain management with IV morphine as well as oral narcotics. Postoperative anemia secondary to acute blood loss. Hemodynamically stable. Asymptomatic. Continue to monitor Depression -Zoloft 150 mg by mouth daily at 1600 Hypertension -Elevated since surgery -Monitor -Will consider antihypertensives and pain is under control and elevation continues. COPD -Albuterol every 2 hours when necessary for shortness of breath. Left bundle branch block -Nonischemic nuclear stress test in January 2017, patient was cleared for surgery. Hyperlipidemia -Patient is intolerant to statins and is currently not prescribed such agents. DVT prophylaxis -Lovenox 40 mg subcutaneous Discharge Planning Patient is medically stable Zachariah Rodriguez MD Aug 02, 2017 14:24
[2017-08-02] MEDS: SERTRALINE HCL 100 MG TAB PO SCH (16:00)
--- NOTE | 2017-08-02 16:15 | PD.ORT.PN ---
Subjective Post Op Day #: 1 Subjective Remarks Patient resting comfortably in bed in NAD. Patient reports she is feeling well and wants to go home today with home health. Objective Vitals Vital Signs Date Time Temp Pulse Resp B/P (MAP) Pulse Ox O2 Delivery O2 Flow Rate FiO2 08/02/17 10:15 98 08/02/17 08:00 98.0 81 18 160/76 (104) 95 08/02/17 04:00 97.4 86 18 127/62 (83) 96 08/02/17 00:00 97.8 80 19 142/55 (84) 94 08/01/17 22:37 21 08/01/17 20:00 97.5 87 16 143/82 (102) 93 08/01/17 19:02 Room Air I/O 08/01/17 08/01/17 08/01/17 08/02/17 08/02/17 08/02/17 07:00 15:00 23:00 07:00 15:00 23:00 Intake Total 50 ml 2580 ml 720 ml 492 ml Output Total 3700 ml Balance 50 ml -1120 ml 720 ml 492 ml Intake Oral 480 ml 720 ml 240 ml IV Total 50 ml 2100 ml 252 ml Output Urine Total 350 ml Estimated Blood Loss 350 ml Other 3000 ml # Voids 1 2 Result Diagram: 08/02/17 0312 Imaging Last 24 hours Impressions Hip and Pelvis X-Ray 08/01/17 0708 Signed Impressions: Service Date/Time: Tuesday, August 01, 2017 09:43 - CONCLUSION: Left total hip prosthesis well seated Percy Alves MD Procedures Left CLAUS Objective Remarks Dressing changed with no drainage. Incision is well approximated. No redness or s/s of infection. EHL/TA/G intact. 2+ pedal pulse. Calf is soft and nontender. + SILT. Assessment & Plan Ortho Post Op Day #: 1 Problem List: Assessment and Plan POD #1: s/p L CLAUS - posterior approach wbat - posterior hip precautions daily dressing changes lovenox d/c planning home with home health today. rx in chart 3006 signed f/up dr. campa 2 weeks Felipe Horton Aug 02, 2017 16:15
[2017-08-02] MEDS ORDERED: DOCUSATE SODIUM 100 MG CAP PO SCH (21:00)
[2017-08-02] MEDS ORDERED: MULTIVITAMINS/MINERALS THERAPEUTIC TAB PO SCH (21:00)
--- NOTE | 2017-08-06 08:12 | MD ---
cc: TAM WASSERMAN M.D. ADMISSION DATE: 08/01/2017 DISCHARGE DATE: 08/02/2017 ADMISSION DIAGNOSIS Severe degenerative osteoarthritis left hip. DISCHARGE DIAGNOSIS Severe degenerative osteoarthritis left hip. HISTORY OF PRESENT ILLNESS Mrs. Ferguson is a 76-year-old female who presented to the [facility] for evaluation by Dr. Tam Wasserman regarding her progressive left hip pain. The patient states her left hip pain has been present for numerous years and is severely a severe, aching sensation inhibiting her activities of daily living. She notes the pain is exacerbated by weightbearing activities. She has no alleviating factors at this point in time, although in the past she has tried medications, bracing therapy, weight loss attempts and other assistive devices without relief of symptoms. She has had x-ray evidence of severe degenerative osteoarthritis of the left hip. While in the office, the patient was counseled on her diagnosis and treatment options. The risks, benefits and indications all were discussed in great detail. The patient did elect to proceed with surgical intervention to include a left total hip arthroplasty. DATE OF SURGERY 08/01/2017 - Left total hip arthroplasty posterior approach. POSTOP After surgery the patient was admitted to [facility] where she received appropriate medical management, pain control, physical therapy as well as DVT prophylaxis. DISCHARGE Once being discharged from the hospital, the patient was cleared to go home where she will receive home health care and home physical therapy. CONDITION ON DISCHARGE She is in stable condition. DISCHARGE INSTRUCTIONS She may weight bear as tolerated with posterior hip precautions. She is to receive daily dressing changes and has been instructed on appropriate wound care management. DISCHARGE MEDICATIONS She has been provided with prescriptions for pain control as well as DVT prophylaxis medication. FOLLOWUP She has also been provided with a follow-up appointment to see Dr. Tam Wasserman in the office in approximately two weeks from her date of surgery. The patient has asked appropriate questions which have been answered. The patient has been discharged. Dictated by: Inderjit Verduzco PA-C Tam Wasserman MD JWM/SSB /8:37 AM /8:06 AM
== END 2017-08-02 18:54 | disposition home health service (06) | DRG 470 ==
LOC: HSDI 08-01 05:24 → N06A 08-01 10:26
PROVIDERS: ADMIT Orthopaedic Surgery Sports Medicine; ATTEND Orthopaedic Surgery Sports Medicine
PROC: 0SRB02A Replacement of Left Hip Joint with Metal on Polyethylene Synthetic Substitute, Uncemented, Open Approach (ICD-10-PCS; principal; 2017-08-01 07:04)
DX: M16.12 Unilateral primary osteoarthritis, left hip (principal); D62 Acute posthemorrhagic anemia; J44.9 Chronic obstructive pulmonary disease, unspecified; I44.7 Left bundle-branch block, unspecified; I10 Essential (primary) hypertension; M24.852 Other specific joint derangements of left hip, not elsewhere classified; M25.752 Osteophyte, left hip; E78.5 Hyperlipidemia, unspecified; E66.9 Obesity, unspecified; F32.9 Major depressive disorder, single episode, unspecified; Z23 Encounter for immunization; Z68.33 Body mass index [BMI] 33.0-33.9, adult; Z87.891 Personal history of nicotine dependence
CPT/HCPCS: 73502; 85027; 86850; 86900; 86901; 90471; 90686; 94150; C1776; C9290; G0008; J0131; J0690; J1100; J1580; J1650; J2250; J2270; J2370; J2405; J3370; J7030; J7050; J7120; L1830; Q2038